=== PATIENT | female | born 1950 | race Caucasian/White ===

== ENCOUNTER → 2022-01-26 | Outpatient (CLI) | payer MEDICARE, OTHER ==
[~2022-01-26] MED LIST: ASPIRIN EC81 MG PO; ATORVASTATIN CA20 MG PO; CARAFATE1 GM PO; COZAAR50 MG PO; FERROUS SULFAT325 M2 PO; FLONASE 0.05% N16 GM; HYDROCHLOROTH12.5 M1 PO; IMDUR ER TAB 3030 MG PO; LIPITOR TAB 1010 MG PO; PROTONIX40 MG PO; SINGULAIR10 MG PO; SYMBICORT 160-1 INHA INH; ULTRAM50 MG PO; VENTOLIN HFA 66.7 GM INH; XANAX1 MG PO; ZANTAC150 MG PO; ZOFRAN4 MG PO
== END ==
LOC: HEART CORB 10:00
DX: I25.10 Atherosclerotic heart disease of native coronary artery without angina pectoris (principal); I31.3 Pericardial effusion (noninflammatory)
CPT/HCPCS: 78452; 93306; A9502; J2785